=== PATIENT | female | born 1980 | race African-American/Black ===

== ENCOUNTER 2016-09-15 17:52 | Emergency (ER) | payer OTHER ==
[~2016-09-15 17:52] MED LIST: ANTIPYRINE/BENZOCAIN; DULO60CA6 PO; FERR-26 PO; HYDR-2762 PO; HYDR-971 PO; IBUP-1060 PO; METH4TAB2 PO; PRED20TA PO; PROAIR HFA8.5 GM INH
[2016-09-15 18:30] VITALS: BP 153/87
[2016-09-15 18:44] LABS: BILIRUBIN,URINE NEGATIVE (NEG); GLUCOSE,URINE NEGATIVE (NEG); NEG OBC UR NEG; NITRITE,URINE NEGATIVE (NEG); POS OBC UR POS; PROTEIN,URINE NEGATIVE (NEG-TRACE); UROBILINOGEN,URINE 0.2 mg/dL (0.2 mg/dL)
--- NOTE | 2016-09-15 18:51 | PHYS DOC ---
Past Medical History Past Medical History: Other Additional Past Medical Histor: RA,CARPEL TUNNEL Past Surgical History: No Surgical History Alcohol Use: None Drug Use: None Adult General Chief Complaint Chief Complaint: PAIN ON URINATION [facility] HPI Patient is a 36 year old female presents emergency room Department today complaining of dysuria for the past 5 days. She also has a secondary complaint of vaginal discharge is been ongoing for longer than 2 weeks. She denies pelvic pain or pressure. She denies abnormal vaginal bleeding. She denies any known STD contact, however, her boyfriend reports dysuria as well as "may be some discharge". Patient denies any antibiotic use within the past 90 days. She denies any history of genitourinary disease or surgeries. Review of Systems Review of Systems Constitutional: Denies fever or chills [] Eyes: Denies change in visual acuity, redness, or eye pain [] HENT: Denies nasal congestion or sore throat [] Respiratory: Denies cough or shortness of breath [] Cardiovascular: No additional information not addressed in HPI [] GI: Denies abdominal pain, nausea, vomiting, bloody stools or diarrhea [] : Denies dysuria or hematuria [] Musculoskeletal: Denies back pain or joint pain [] Integument: Denies rash or skin lesions [] Neurologic: Denies headache, focal weakness or sensory changes [] Endocrine: Denies polyuria or polydipsia [] Allergies Allergies Allergies Coded Allergies Type Severity Reaction Last Updated Verified No Known Drug Allergies 01/31/15 No Physical Exam Physical Exam Constitutional: Well developed, well nourished, no acute distress, non-toxic appearance. [] HENT: Normocephalic, atraumatic, bilateral external ears normal, oropharynx moist, no oral exudates, nose normal. [] Eyes: PERRLA, EOMI, conjunctiva normal, no discharge. [] Neck: Normal range of motion, no tenderness, supple, no stridor. [] Cardiovascular:Heart rate regular rhythm, no murmur [] Lungs & Thorax: Bilateral breath sounds clear to auscultation [] Abdomen: Bowel sounds normal, soft, no tenderness, no masses, no pulsatile masses. External genitalia is without masses or lesions. There is no blood in the vaginal vault. There is a scant amount of thin whitish yellow discharge in the vaginal vault. Cervix is normal in appearance. There is no cervical motion tenderness. There are no adnexal masses or tenderness to palpation. Skin: Warm, dry, no erythema, no rash. [] Back: No tenderness, no CVA tenderness. [] Extremities: No tenderness, no cyanosis, no clubbing, ROM intact, no edema. [] Neurologic: Alert and oriented X 3, normal motor function, normal sensory function, no focal deficits noted. [] Psychologic: Affect normal, judgement normal, mood normal. [] Current Patient Data Vital Signs Vital Signs Date Time Temp Pulse Resp B/P Pulse Ox O2 Delivery O2 Flow Rate FiO2 09/15/16 18:30 98.4 94 18 100 Room Air 98.4 Lab Values Laboratory Tests Test 09/15/16 18:30 Urine Collection Type Unknown Urine Color Yellow Urine Clarity Cloudy Urine pH 6.0 Urine Specific [place] 1.025 Urine Protein Negativemg/dL (NEG-TRACE) Urine Glucose (UA) Negativemg/dL (NEG) Urine Ketones (Stick) Negativemg/dL (NEG) Urine Blood Moderate (NEG) Urine Nitrite Negative (NEG) Urine Bilirubin Negative (NEG) Urine Urobilinogen Dipstick 0.2mg/dL (0.2 mg/dL) Urine Leukocyte Esterase Moderate (NEG) Urine RBC Occ/HPF (0-2) Urine WBC 5-10/HPF (0-4) Urine Squamous Epithelial Cells Many/LPF Urine Bacteria Many/HPF (0-FEW) Urine Mucus Marked/LPF Urine Test Negative (NEG) Microbiology 09/15/16 Wet Prep - Final, Complete EKG EKG [] Radiology/Procedures Radiology/Procedures [] Course & Med Decision Making Course & Med Decision Making Pertinent Labs and Imaging studies reviewed. (See chart for details) [] Dragon Disclaimer Dragon Disclaimer This electronic medical record was generated, in whole or in part, using a voice recognition dictation system. Departure Departure Impression: Primary Impression: Bacterial vaginosis Additional Impression: Urinary tract infection Disposition: 01 HOME, SELF-CARE Condition: GOOD Referrals: UNKNOWN PCP NAME (PCP) Patient Instructions: Bacterial Vaginosis, [id number], Urinary Tract Infection, [id number] Additional Instructions: 1. Take the medication as prescribed. 2. No sexual intercourse for the next 2 weeks. 3. Review the discharge instructions provided for self-care and reasons to return the emergency department. You will be contacted if the gonorrhea or chlamydia test are positive. You will not be contacted if they are negative. 4. Follow-up with a primary care doctor's office within the next 7-10 days. Scripts Nitrofurantoin Macrocrystal (Nitrofurantoin)100 Mg Capsule1 Cap PO BID #14 CAP Prov:VARSHA MACK 09/15/16 Metronidazole (Flagyl)500 Mg Tablet1 Tab PO BID #14 TAB Prov:VARSHA MACK 09/15/16 Problem Qualifiers VARSHA MACK Sep 15, 2016 18:51
[2016-09-15 18:52] LABS: BACTERIA,URINE MANY /HPF (0-FEW); RBC,URINE OCC /HPF (0-2); SQUAMOUS EPITHELIAL CELL,UR MANY /LPF
[2016-09-15] MEDS ORDERED: NITR100C PO (19:51)
[2016-09-15] MEDS ORDERED: METR500T PO (19:51)
== END 2016-09-15 19:56 | disposition home or self-care (01) ==
LOC: ER 17:52
DX: N39.0 Urinary tract infection, site not specified (principal); N76.0 Acute vaginitis; B96.89 Other specified bacterial agents as the cause of diseases classified elsewhere; M06.9 Rheumatoid arthritis, unspecified
CPT/HCPCS: 81001; 81025; 87086; 87491; 87591; 99284; Q0111

== ENCOUNTER 2017-03-23 03:33 | Emergency (ER) | payer OTHER ==
[~2017-03-23] VITALS: Ht 162.6 cm; Wt 113.4 kg
[~2017-03-23 03:33] MED LIST changes: +METR500T PO; +NITR100C PO
[2017-03-23 05:02] VITALS: BP 134/68
[2017-03-23] MEDS ORDERED: IBUP-1007 PO (05:02)
[2017-03-23] MEDS ORDERED: AZIT250T PO (05:02)
--- NOTE | 2017-03-23 05:02 | PHYS DOC ---
Past Medical History Past Medical History: High Cholesterol, Other Additional Past Medical Histor: RA,CARPEL TUNNEL Past Surgical History: No Surgical History Alcohol Use: None Drug Use: None Adult General Chief Complaint Chief Complaint: MULTIPLE COMPLAINTS HPI HPI Patient is a 36 year old female who presents here today complaining of fever 102 chest pain. Patient reports she was unable to get out of bed today she felt weak and tired. Patient reports she's had a green productive cough. Patient had no nausea vomiting or diarrhea. No dysuria frequency or urgency. Patient is a history for rheumatoid arthritis. Patient has any history of hypertension diabetes liver longer kidney problems. Patient does not smoke drink or do any drugs. Patient is not allergic to any medications. Patient had no prior surgeries. Patient also complaining of pain to her left knee which is similar to her rheumatoid arthritis flare. Constitutional: Denies fever or chills [] Eyes: Denies change in visual acuity, redness, or eye pain [] HENT: Denies nasal congestion or sore throat [] All other review systems are negative except as documented in the history of present illness portion. Constitutional: Well developed, well nourished, no acute distress, non-toxic appearance. [] HENT: Normocephalic, atraumatic, bilateral external ears normal, oropharynx moist, no oral exudates, nose normal. [] Eyes: no discharge. [] Neck: Normal range of motion, no tenderness, supple, no stridor. [] Cardiovascular:Heart rate regular rhythm, Lungs & Thorax: Bilateral breath sounds clear to auscultation [] Abdomen: Bowel sounds normal, soft, no tenderness, no masses, no pulsatile masses. [] Skin: Warm, dry, no erythema, no rash. [] Back: No tenderness, no CVA tenderness. [] Extremities: No tenderness, no cyanosis, no clubbing, ROM intact, no edema. [] Neurologic: Alert and oriented X 3, normal motor function, normal sensory function, no focal deficits noted. [] Psychologic: Affect normal, judgement normal, mood normal. [] Assessment and plan this is a 36-year-old female with history of rheumatoid arthritis who presents here today with signs and symptoms consistent with bronchitis versus pneumonia. Patient chest x-ray to ER which revealed no infiltrates or effusions. Patient be discharged home in stable condition. Patient be discharged on ibuprofen and Zithromax. Patient was given ibuprofen in the ER with defervescence of the fever. Patient feels much improved and feels comfortable with the plan to be discharged home. Laboratory Tests Test 03/23/17 03:11 Bedside Urine HCG, Qualitative Hcg negative Current Medications Medications (Trade) Dose Ordered Sig/Maral Route PRN Reason Start Time Stop Time Status Last Admin Dose Admin Ibuprofen (Motrin) 600 mg 1X ONCE PO 03/23/17 05:30 03/23/17 05:30 DC 03/23/17 05:12 600 MG Azithromycin (Zithromax) 500 mg 1X ONCE PO 03/23/17 05:30 03/23/17 05:30 DC 03/23/17 05:13 500 MG Current Medications Current Medications Current Medications Medications (Trade) Dose Ordered Sig/Maral Start Time Stop Time Status Last Admin Dose Admin Azithromycin (Zithromax) 500 mg 1X ONCE 03/23/17 05:30 03/23/17 05:30 DC 03/23/17 05:13 500 MG Ibuprofen (Motrin) 600 mg 1X ONCE 03/23/17 05:30 03/23/17 05:30 DC 03/23/17 05:12 600 MG Allergies Allergies Allergies Coded Allergies Type Severity Reaction Last Updated Verified No Known Drug Allergies 01/31/15 No Current Patient Data Vital Signs Vital Signs Date Time Temp Pulse Resp B/P (MAP) Pulse Ox O2 Delivery O2 Flow Rate FiO2 03/23/17 05:02 92 17 134/68 (90) 99 Room Air 03/23/17 03:35 98.7 98.7 Lab Values Laboratory Tests Test 03/23/17 03:11 POC Urine HCG, Qualitative Hcg negative (Negative) EKG EKG [] Radiology/Procedures Radiology/Procedures [] Course & Med Decision Making Course & Med Decision Making Pertinent Labs and Imaging studies reviewed. (See chart for details) [] Dragon Disclaimer Dragon Disclaimer This electronic medical record was generated, in whole or in part, using a voice recognition dictation system. Departure Departure Impression: Primary Impression: URI (upper respiratory infection) Additional Impressions: Bronchitis Left knee pain Rheumatoid arthritis Disposition: 01 HOME, SELF-CARE Condition: IMPROVED Referrals: UNKNOWN PCP NAME (PCP) Patient Instructions: Acute Bronchitis, Rheumatoid Arthritis Scripts Azithromycin (ZITHROMAX) 250 Mg Tablet 1 PKG PO UD, #6 TAB Prov: ELLIOT BENOIT MD 03/23/17 Ibuprofen (IBUPROFEN) 600 Mg Tablet 600 MG PO PRN Q6HRS Y for PAIN, #20 TAB Prov: ELLIOT BENOIT MD 03/23/17 Problem Qualifiers ELLIOT BENOIT MD Mar 23, 2017 05:02
[2017-03-23] MEDS ORDERED: AZITHROMYCIN 250 MG TABLET. PO ONE (05:30)
[2017-03-23] MEDS ORDERED: IBUPROFEN 600 MG TABLET. PO ONE (05:30)
--- NOTE | 2017-03-23 09:08 | EKG ---
[facility] [address] [place] [address] Test Date: 2017-03-23 Test Time: 03:45:33 Pat Name: SATNAM CAMACHO Department: Room: Gender: F [employer]: : [id number] Requested By: ELLIOT BENOIT Order Number: [id number] Reading MD: Nilson Hernandez Measurements Intervals Dawson Rate: 102 P: 51 LA: 154 QRS: 10 QRSD: 76 T: 14 QT: 352 QTc: 463 Interpretive Statements SINUS TACHYCARDIA Electronically Signed On 03-28-2017 14:35:51 CDT by Nilson Hernandez
== END 2017-03-23 05:16 | disposition home or self-care (01) ==
LOC: ER 03:33
DX: J06.9 Acute upper respiratory infection, unspecified (principal); J40 Bronchitis, not specified as acute or chronic; M06.9 Rheumatoid arthritis, unspecified; E11.9 Type 2 diabetes mellitus without complications; E78.00 Pure hypercholesterolemia, unspecified; I10 Essential (primary) hypertension
CPT/HCPCS: 81025; 93005; 99284; Q0144